=== PATIENT | female | born 1970 | race Caucasian/White ===

== ENCOUNTER 2021-01-16 09:54 | Observation (INO) | payer MEDICARE, MEDICAID ==
[~2021-01-16] VITALS: Ht 167.6 cm; Wt 121.6 kg
[2021-01-16 10:22] LABS: CALCIUM 9.6 mg/dL (8.5-10.1); CREATININE 0.8 mg/dL (0.6-1.0); GFR 76.6; POTASSIUM 4.2 mmol/L (3.5-5.1)
[2021-01-16 10:28] LABS: ALBUMIN 3.5 g/dL (3.4-5.0); ALBUMIN/GLOBULIN RATIO 0.9 (1.0-1.7); MAGNESIUM 2.2 mg/dL (1.8-2.4); TOTAL BILIRUBIN 0.2 mg/dL (0.2-1.0); TOTAL PROTEIN 7.4 g/dL (6.4-8.2)
[2021-01-16 10:31] LABS: BASO % 0 % (0-3); EOS # 0.1 x10^3/uL (0.0-0.7); EOS % 1 % (0-3); HEMATOCRIT 38.6 % (36.0-47.0); HEMOGLOBIN 12.6 g/dL (12.0-15.5); LYMPH # 2.4 x10^3/uL (1.0-4.8); LYMPH % 23 % (24-48); MEAN CORPUSCULAR HEMOGLOBIN 27 pg (25-35); MEAN CORPUSCULAR HGB CONC 33 g/dL (31-37); MEAN CORPUSCULAR VOLUME 83 fL (79-100); MONO % 10 % (0-9); NEUT # 6.8 x10^3/uL (1.8-7.7); NEUT % 66 % (31-73); PLATELET COUNT 272 x10^3/uL (140-400); RED BLOOD COUNT 4.67 x10^6/uL (3.50-5.40); RED CELL DISTRIBUTION WIDTH 15.4 % (11.5-14.5); WHITE BLOOD COUNT 10.3 x10^3/uL (4.0-11.0)
[2021-01-16 10:32] LABS: BILIRUBIN,URINE NEGATIVE (NEG); CLARITY,URINE CLEAR; COLOR,URINE YELLOW; NITRITE,URINE NEGATIVE (NEG); PROTEIN,URINE NEGATIVE (NEG-TRACE)
[2021-01-16 10:35] LABS: RBC,URINE 0 /HPF (0-2); WBC,URINE RARE /HPF (0-4)
[2021-01-16 10:36] LABS: BACTERIA,URINE 0 /HPF (0-FEW)
[2021-01-16] MEDS ORDERED: ONDANSETRON PF 4 MG/2 ML VIAL. IVP ONE (10:45)
[2021-01-16] MEDS ORDERED: levETIRAcetam 1,000 MG in IV DEXTROSE 5% 100ML 100 ML IV ONE (10:45)
[2021-01-16] MEDS ORDERED: HYOSCYAMINE 0.125 MG TAB.RAPDIS PO PRN (10:45)
[2021-01-16] MEDS ORDERED: IV NORMAL SALINE 1000ML BAG 1,000 ML IV ONE (10:45)
--- NOTE | 2021-01-16 10:58 | ED.ADGEN ---
Past Medical History Past Medical History: No Pertinent History Past Surgical History: Appendectomy, Cholecystectomy, Other Additional Past Surgical Histo: Gastric sleeve Smoking Status: Current Every Day Smoker Alcohol Use: Heavy General Adult EDM: Chief Complaint: ABDOMINAL PAIN HPI: HPI: Patient is a 50-year-old female with past medical history of polysubstance abuse who presents to the emergency room complaining of nausea, diarrhea, abdominal tightening, tremors that all started yesterday evening. Patient last had methamphetamines and alcohol on January 02 of this month. She last had benzod iazepines 3 days ago. Patient was on Ativan 4 times a day and was also taking Klonopin 3 times a day that she was not prescribed. She states it feels like she could have a seizure. She has had seizures previously with alcohol withdrawal. She has never been through benzodiazepine withdrawal before. She denies any kind of fever. She has not had any vomiting. She denies chest pain, shortness of breath, cough, congestion, URI symptoms. Review of Systems: Review of Systems: Complete ROS is negative unless otherwise documented in HPI Current Medications: Current Medications Medications (Trade) Dose Ordered Sig/Luigi Start Time Stop Time Status Last Admin Dose Admin Buspirone HCl (Buspar) 10 mg 1X ONCE 01/16/21 11:45 01/16/21 11:46 DC Hyoscyamine (Anaspaz) 0.25 mg 1X PRN 01/16/21 10:45 01/16/21 10:59 0.25 MG Levetiracetam 1000 mg/Dextrose 110 ml @ 440 mls/hr 1X ONCE 01/16/21 10:45 01/16/21 10:59 DC 01/16/21 10:59 440 MLS/HR Ondansetron HCl (Zofran) 4 mg 1X ONCE 01/16/21 10:45 01/16/21 10:49 DC 01/16/21 10:58 4 MG Sodium Chloride 1,000 ml @ 1,000 mls/hr 1X ONCE 01/16/21 10:45 01/16/21 11:44 DC 01/16/21 10:59 1,000 MLS/HR Allergies: Allergies: Allergies Coded Allergies Type Severity Reaction Last Updated Verified codeine Allergy Intermediate 01/16/21 Yes iodine Allergy Intermediate 01/16/21 Yes latex Allergy Intermediate 01/16/21 Yes levofloxacin Allergy Intermediate 01/16/21 Yes Physical Exam: PE: General: Awake, alert, NAD. Well Nourished, well hydrated. Cooperative HEENT: Atraumatic, EOMI, PERRL, airway patent, moist oral mucosa Neck: Supple, trachea midline Respiratory: CTA bilaterally, normal effort, no wheezing/crackles CV: RRR, no murmur, cap refill <2 GI: Soft, nondistended, nontender, no masses MSK: No obvious deformities Skin: Warm, dry, intact Neuro: A&O x3, speech NL, sensory and motor grossly intact, no focal deficits Psych: Normal affect, normal mood, not suicidal or homicidal Current Patient Data: Labs: Laboratory Tests Test 01/16/21 10:00 01/16/21 10:22 01/16/21 10:27 White Blood Count 10.3 x10^3/uL (4.0-11.0) Red Blood Count 4.67 x10^6/uL (3.50-5.40) Hemoglobin 12.6 g/dL (12.0-15.5) Hematocrit 38.6 % (36.0-47.0) Mean Corpuscular Volume 83 fL (79-100) Mean Corpuscular Hemoglobin 27 pg (25-35) Mean Corpuscular Hemoglobin Concent 33 g/dL (31-37) Red Cell Distribution Width 15.4 % (11.5-14.5) H Platelet Count 272 x10^3/uL (140-400) Neutrophils (%) (Auto) 66 % (31-73) Lymphocytes (%) (Auto) 23 % (24-48) L Monocytes (%) (Auto) 10 % (0-9) H Eosinophils (%) (Auto) 1 % (0-3) Basophils (%) (Auto) 0 % (0-3) Neutrophils # (Auto) 6.8 x10^3/uL (1.8-7.7) Lymphocytes # (Auto) 2.4 x10^3/uL (1.0-4.8) Monocytes # (Auto) 1.0 x10^3/uL (0.0-1.1) Eosinophils # (Auto) 0.1 x10^3/uL (0.0-0.7) Basophils # (Auto) 0.0 x10^3/uL (0.0-0.2) Sodium Level 146 mmol/L (136-145) H Potassium Level 4.2 mmol/L (3.5-5.1) Chloride Level 108 mmol/L (98-107) H Carbon Dioxide Level 29 mmol/L (21-32) Anion Gap 9 (6-14) Blood Urea Nitrogen 8 mg/dL (7-20) Creatinine 0.8 mg/dL (0.6-1.0) Estimated GFR (Cockcroft-Gault) 76.6 BUN/Creatinine Ratio 10 (6-20) Glucose Level 102 mg/dL (70-99) H Calcium Level 9.6 mg/dL (8.5-10.1) Magnesium Level 2.2 mg/dL (1.8-2.4) Total Bilirubin 0.2 mg/dL (0.2-1.0) Aspartate Amino Transferase (AST) 14 U/L (15-37) L Alanine Aminotransferase (ALT) 16 U/L (14-59) Alkaline Phosphatase 94 U/L (46-116) Total Protein 7.4 g/dL (6.4-8.2) Albumin 3.5 g/dL (3.4-5.0) Albumin/Globulin Ratio 0.9 (1.0-1.7) L Lipase 70 U/L (73-393) L Urine Collection Type Unknown Urine Color Yellow Urine Clarity Clear Urine pH 6.0 (<5.0-8.0) Urine Specific [place] 1.020 (1.000-1.030) Urine Protein Negative mg/dL (NEG-TRACE) Urine Glucose (UA) Negative mg/dL (NEG) Urine Ketones (Stick) Negative mg/dL (NEG) Urine Blood Negative (NEG) Urine Nitrite Negative (NEG) Urine Bilirubin Negative (NEG) Urine Urobilinogen Dipstick 1.0 mg/dL (0.2 mg/dL) Urine Leukocyte Esterase Negative (NEG) Urine RBC 0 /HPF (0-2) Urine WBC Rare /HPF (0-4) Urine Squamous Epithelial Cells Mod /LPF Urine Bacteria 0 /HPF (0-FEW) Urine Mucus Slight /LPF POC Urine HCG, Qualitative Hcg negative (Negative) Laboratory Tests 01/16/21 10:00 Laboratory Tests 01/16/21 10:00 Vital Signs: Vital Signs Date Time Temp Pulse Resp B/P (MAP) Pulse Ox O2 Delivery O2 Flow Rate FiO2 01/16/21 09:54 98.4 54 18 122/76 (91) 94 Room Air 98.4 EKG: EKG: [] Heart Score: C/O Chest Pain: N/A Risk Factors: Risk Factors: DM, Current or recent (<one month) smoker, HTN, HLP, family history of CAD, obesity. Risk Scores: Score 0 - 3: 2.5% MACE over next 6 weeks - Discharge Home Score 4 - 6: 20.3% MACE over next 6 weeks - Admit for Clinical Observation Score 7 - 10: 72.7% MACE over next 6 weeks - Early Invasive Strategies Radiology/Procedures: Radiology/Procedures: [] Course & Med Decision Making: Course & Med Decision Making Pertinent Labs and Imaging studies reviewed. (See chart for details) Patient presents to the emergency room complaining of nausea, diarrhea, abdominal tightening. Patient symptoms are most suggestive of benzodiazepine withdraw. Other differential was considered including appendicitis, diverticulitis, small bowel obstruction, cholecystitis, bowel perforation and these are considered to be less likely given patient's presentation and vital signs. Lab work was ordered to help her stratify patient for any emergent cause of abdominal pain. Patient will be treated symptomatically. She is trying to withdrawal from benzodiazepines . We will try other treatment including Zofran, Levsin, normal saline. Patient will be given Keppra to try to prevent any kind of withdrawal seizures. She has not had any kind of seizures here in the emergency room. Ana from the PAT team evaluated the patient as well. Patient will need help getting off of benzodiazepines due to significant withdrawal. With long discussions with Ana plan was made to start patient on a Librium taper. She will eventually need to go to [facility]. At this time [facility] is full. Patient will need to be observed overnight to ensure that she does not have any seizures as she does have a history of seizures with withdrawal. We will load her with Librium here in the emergency room. Librium taper was sent over to [facility] to pick up worker tomorrow. Luana Disclaimer: Luana Disclaimer: This electronic medical record was generated, in whole or in part, using a voice recognition dictation system. Departure Departure Impression: Primary Impression: Benzodiazepine withdrawal Disposition: ADMITTED INPATIENT Condition: STABLE Referrals: NO PCP (PCP) Patient Instructions: Benzodiazepine Withdrawal Scripts Chlordiazepoxide Hcl (CHLORDIAZEPOXIDE HCL) 25 Mg Capsule 25 MG PO UD for 35 Days, #147 CAP Take 50mg QID for 1 week Take 50mg TID for 1 week Take 25mg twice during the day and 50mg at night for 1 week Take 25mg BID for 1 week Take 25mg QHS for 1 week Prov: LYLA KOVACS MD 01/16/21 LYLA KOVACS MD Jan 16, 2021 10:58
[2021-01-16] MEDS ORDERED: busPIRone 10 MG TABLET. PO ONE (11:45)
[2021-01-16] MEDS ORDERED: chlordiazePOXIDE HCL 25 MG CAPSULE PO ONE (12:15)
[2021-01-16] MEDS ORDERED: CHLO25CA9 PO (12:21)
[2021-01-16] MEDS ORDERED: ONDANSETRON PF 4 MG/2 ML VIAL. IV PRN (12:30)
--- NOTE | 2021-01-16 12:42 | SSS ---
ADMIT DATE: 01/16/2021 CHIEF COMPLAINT: Benzodiazepine withdrawal, polysubstance abuse, and abdominal pain. HISTORY OF PRESENT ILLNESS: The patient is a pleasant 50-year-old female who was supposed to go to a substance abuse treatment center, but apparently is having too many symptoms of withdrawal. She apparently takes up to 20 Klonopin a day. She last used alcohol on 01/02. She also used methamphetamine at that time. She explains to me that her dad and her mom were both drug addicts and dealers, so she has been struggling with this all of her life. I discussed the case with ER physician. The plan is to go and get the patient in for benzodiazepine withdrawal. The patient is scheduled to go to a drug treatment center, perhaps as early as tomorrow if she is doing well. PAST MEDICAL HISTORY: Appendectomy, cholecystectomy, polysubstance abuse, gastric sleeve. She is a daily smoker. ALLERGIES: None. FAMILY HISTORY: Hypertension, alcohol abuse and substance abuse. SOCIAL HISTORY: She smokes and takes a lot of drugs including a lot of benzodiazepine. She uses methamphetamine, also uses alcohol. MEDICATIONS: Reviewed, please refer to the MRAD. REVIEW OF SYSTEMS: GENERAL: No history of weight change, weakness or fevers. SKIN: No bruising, hair changes or rashes. EYES: No blurred, double or loss of vision. NOSE AND THROAT: No history of nosebleeds, hoarseness or sore throat. HEART: No history of palpitations, chest pain or shortness of breath on exertion. LUNGS: Denies cough, hemoptysis, wheezing or shortness of breath. GASTROINTESTINAL: She complains of abdominal pain. GENITOURINARY: No history of frequency, urgency, hesitancy or nocturia. NEUROLOGIC: She complains of shaking. PSYCHIATRIC: No history of panic, anxiety or depression. ENDOCRINE: No history of heat or cold intolerance, polyuria or polydipsia. EXTREMITIES: Denies muscle weakness, joint pain, pain on walking or stiffness. PHYSICAL EXAMINATION: VITALS: Within normal limits and are stable. GENERAL: She is pleasant, a little shaky. HEENT: Normal cephalic atraumatic, external auditory canals are patent. She has poor dentition. EYES: Extraocular muscles are intact, pupils are equally round and reactive to light and accommodation. MUSCULOSKELETAL: Well developed, well nourished, good range of motion. ENDOCRINE: No thyromegaly was palpated. LYMPHATICS: No cervical chain or axillary nodes were noted. HEMATOPOIETIC: No bruising. NECK: Supple, no JVD, no thyromegaly was noted. LUNGS: Clear to auscultation in all lung dela cruz without rhonchi or wheezing. HEART: RRR, S1, S2 present. Peripheral pulses intact, no obvious murmurs were noted. ABDOMEN: Soft, nontender. Positive bowel sounds no organomegaly, normal bowel sounds. EXTREMITIES: Without any cyanosis, clubbing, or edema. Pedal pulses intact, Homans sign is negative. NEUROLOGIC: She is a little shaky. PSYCHIATRIC: Normal affect, normal mood. Stable. SKIN: No ulcerations or rashes, good skin turgor, no jaundice. VASCULAR: Good capillary refill, neurovascular bundle appears to be intact. ASSESSMENT AND PLAN: Benzodiazepine withdrawal. The patient has been amenable, give her benzodiazepine withdrawal protocol, IV fluids. I started procalamine at 75 mL an hour. Home meds. DVT prophylaxis. Full code. She is scheduled to go to a drug rehab tomorrow if she is stable. OMAR DR: Homa TID: [id number]
[2021-01-16 19:30] VITALS: BP 96/51
[2021-01-16] MEDS: AMINO AC 3%/ELECTROLYTE/GLYCER 1,000 ML IV SCH (19:57)
[2021-01-16] MEDS: chlordiazePOXIDE HCL 25 MG CAPSULE PO SCH (19:58)
[2021-01-16] MEDS ORDERED: TRAZ-123 PO (21:53)
[2021-01-16 22:53] VITALS: BP 93/44
[2021-01-17 03:29] VITALS: BP 98/57
[2021-01-17 07:00] VITALS: BP 111/66
[2021-01-17] MEDS: chlordiazePOXIDE HCL 25 MG CAPSULE PO SCH ×3 (07:19→12:16)
[2021-01-17] MEDS: AMINO AC 3%/ELECTROLYTE/GLYCER 1,000 ML IV SCH (07:20)
--- NOTE | 2021-01-17 10:51 | PDOC ---
[employer] PROGRESS NOTE Date of Service DOS: DATE: 01/17/21 TIME: 10:49 Chief Complaint Chief Complaint Benzodiazepine withdrawal. The patient has been amenable, give her benzodiazepine withdrawal protocol, IV fluids. I started procalamine at 75 mL an hour. Home meds. DVT prophylaxis. Full code. She is scheduled to go to a drug rehab tomorrow if she is stable. History of Present Illness History of Present Illness The patient is a pleasant 50-year-old female who was supposed to go to a substance abuse treatment center, but apparently is having too many symptoms of withdrawal. She apparently takes up to 20 Klonopin a day. She last used alcohol on 01/02. She also used methamphetamine at that time. She explains to me that her dad and her mom were both drug addicts and dealers, so she has been struggling with this all of her life. I discussed the case with ER physician. The plan is to go and get the patient in for benzodiazepine withdrawal. The patient is scheduled to go to a drug treatment center, perhaps as early as tomorrow if she is doing well. 01/17/2021: Patient seen and evaluated bedside. She feels Librium is helping with her withdrawals. Librium taper was written by ED attending and prescribed electronically to her pharmacy, and I discussed this with patient. Discussed with RN and social work lecturer, patient may discharge to [facility] today. Greater than 30 minutes was spent managing the discharge of this patient. Vitals/I&O Vitals/I&O: Vital Signs Date Time Temp Pulse Resp B/P (MAP) Pulse Ox O2 Delivery O2 Flow Rate FiO2 01/17/21 07:00 98.4 55 18 111/66 (81) 96 Room Air 98.4 I & O 01/16/21 01/16/21 01/17/21 14:59 22:59 06:59 Intake Total 120 ml 240 ml Balance 120 ml 240 ml Physical Exam General: Alert, No acute distress Heart: No murmurs Lungs: Clear Abdomen: Normal bowel sounds, Soft Extremities: No clubbing, No cyanosis Skin: No rashes, No breakdown Assessment and Plan Assessmemt and Plan Problems Medical Problems: (1) Benzodiazepine withdrawal Status: Acute Comment Review of Relevant I have reviewed the following items francisco (where applicable) has been applied. Medications: Current Medications Medications (Trade) Dose Ordered Sig/Luigi Route PRN Reason Start Time Stop Time Status Last Admin Dose Admin Buspirone HCl (Buspar) 10 mg 1X ONCE PO 01/16/21 11:45 01/16/21 11:46 DC 01/16/21 13:21 Chlordiazepoxide (Librium) 100 mg 1X ONCE PO 01/16/21 12:15 01/16/21 12:16 DC 01/16/21 12:21 Amino Acids/ Glycerin/ Electrolytes 1,000 ml @ 75 mls/hr [id number] IV 01/16/21 14:00 01/17/21 07:20 Chlordiazepoxide (Librium) 50 mg [id number] PO 01/16/21 18:00 01/17/21 12:01 01/17/21 07:19 Justifications for Admission Other Justification GREGORIO CARVER MD Jan 17, 2021 10:51
--- NOTE | 2021-01-17 10:54 | PDOC3 ---
Discharge Summary Visit Information Date of Admission: Jan 16, 2021 Date of Discharge: Jan 17, 2021 Final Diagnosis Problems Medical Problems: (1) Benzodiazepine withdrawal Status: Acute Brief Hospital Course Allergies Allergies Coded Allergies Type Severity Reaction Last Updated Verified codeine Allergy Intermediate 01/16/21 Yes iodine Allergy Intermediate 01/16/21 Yes latex Allergy Intermediate 01/16/21 Yes levofloxacin Allergy Intermediate 01/16/21 Yes Vital Signs Vital Signs Date Time Temp Pulse Resp B/P (MAP) Pulse Ox O2 Delivery O2 Flow Rate FiO2 01/17/21 07:00 98.4 55 18 111/66 (81) 96 Room Air 98.4 Lab Results Laboratory Tests Test 01/16/21 10:00 01/16/21 10:22 01/16/21 10:27 White Blood Count 10.3 x10^3/uL (4.0-11.0) Red Blood Count 4.67 x10^6/uL (3.50-5.40) Hemoglobin 12.6 g/dL (12.0-15.5) Hematocrit 38.6 % (36.0-47.0) Mean Corpuscular Volume 83 fL (79-100) Mean Corpuscular Hemoglobin 27 pg (25-35) Mean Corpuscular Hemoglobin Concent 33 g/dL (31-37) Red Cell Distribution Width 15.4 % (11.5-14.5) Platelet Count 272 x10^3/uL (140-400) Neutrophils (%) (Auto) 66 % (31-73) Lymphocytes (%) (Auto) 23 % (24-48) Monocytes (%) (Auto) 10 % (0-9) Eosinophils (%) (Auto) 1 % (0-3) Basophils (%) (Auto) 0 % (0-3) Neutrophils # (Auto) 6.8 x10^3/uL (1.8-7.7) Lymphocytes # (Auto) 2.4 x10^3/uL (1.0-4.8) Monocytes # (Auto) 1.0 x10^3/uL (0.0-1.1) Eosinophils # (Auto) 0.1 x10^3/uL (0.0-0.7) Basophils # (Auto) 0.0 x10^3/uL (0.0-0.2) Sodium Level 146 mmol/L (136-145) Potassium Level 4.2 mmol/L (3.5-5.1) Chloride Level 108 mmol/L (98-107) Carbon Dioxide Level 29 mmol/L (21-32) Anion Gap 9 (6-14) Blood Urea Nitrogen 8 mg/dL (7-20) Creatinine 0.8 mg/dL (0.6-1.0) Estimated GFR (Cockcroft-Gault) 76.6 BUN/Creatinine Ratio 10 (6-20) Glucose Level 102 mg/dL (70-99) Calcium Level 9.6 mg/dL (8.5-10.1) Magnesium Level 2.2 mg/dL (1.8-2.4) Total Bilirubin 0.2 mg/dL (0.2-1.0) Aspartate Amino Transf (AST/SGOT) 14 U/L (15-37) Alanine Aminotransferase (ALT/SGPT) 16 U/L (14-59) Alkaline Phosphatase 94 U/L (46-116) Total Protein 7.4 g/dL (6.4-8.2) Albumin 3.5 g/dL (3.4-5.0) Albumin/Globulin Ratio 0.9 (1.0-1.7) Lipase 70 U/L (73-393) Urine Collection Type Unknown Urine Color Yellow Urine Clarity Clear Urine pH 6.0 (<5.0-8.0) Urine Specific [place] 1.020 (1.000-1.030) Urine Protein Negative mg/dL (NEG-TRACE) Urine Glucose (UA) Negative mg/dL (NEG) Urine Ketones (Stick) Negative mg/dL (NEG) Urine Blood Negative (NEG) Urine Nitrite Negative (NEG) Urine Bilirubin Negative (NEG) Urine Urobilinogen Dipstick 1.0 mg/dL (0.2 mg/dL) Urine Leukocyte Esterase Negative (NEG) Urine RBC 0 /HPF (0-2) Urine WBC Rare /HPF (0-4) Urine Squamous Epithelial Cells Mod /LPF Urine Bacteria 0 /HPF (0-FEW) Urine Mucus Slight /LPF Bedside Urine HCG, Qualitative Hcg negative (Negative) Brief Hospital Course Ms. Arizmendi is a pleasant 50-year-old female who was supposed to go to a substance abuse treatment center, but apparently is having too many symptoms of withdrawal. She apparently takes up to 20 Klonopin a day. She last used alcohol on 01/02. She also used methamphetamine at that time. She explains to me that her dad and her mom were both drug addicts and dealers, so she has been struggling with this all of her life. I discussed the case with ER physician. The plan is to go and get the patient in for benzodiazepine withdrawal. The patient is scheduled to go to a drug treatment center, and will discharge today on short Librium taper. Discharge Information Condition at Discharge: Improved Disposition/Orders: D/C to Another Facility Scheduled Chlordiazepoxide Hcl (Chlordiazepoxide Hcl) 25 Mg Capsule, 25 MG PO UD for 35 Days, #147 Take 50mg QID for 1 week Take 50mg TID for 1 week Take 25mg twice during the day and 50mg at night for 1 week Take 25mg BID for 1 week Take 25mg QHS for 1 week Prescribed by: LYLA KOVACS MD on 01/16/21 1221 Trazodone Hcl (Trazodone Hcl) 100 Mg Tablet, 1 TAB PO QHS for insomnia, #30 Ref 1 (Reported) Entered as Reported by: VAMSHI GRANDA on 01/16/212152 Last Action: New Order on 01/16/212152 by VAMSHI GRANDA Justicifation of Admission Dx: Justifications for Admission: Justification of Admission Dx: Yes GREGORIO CARVER MD Jan 17, 2021 10:54
[2021-01-17 11:00] VITALS: BP 107/62
--- NOTE | 2021-01-17 12:20 | NUR ---
SW following. Discussed with RN, pt came from [facility], room air, regular diet. VIVIANA spoke with Kimberly ([facility]), she is coming to see pt to get pt to [facility] and then pt will get back to [facility]. VIVIANA will continue to follow.
[2021-01-17 15:00] VITALS: BP 99/59
--- NOTE | 2021-01-17 17:11 | NUR ---
Discharge Note: [facility] Discharge instructions and discharge home medications reviewed with the patient and a copy given. All questions have been answered and understanding verbalized. The following instructions and handouts were given: Home meds as directed. Librium prescription given by ER doc. Benzodiazepine withdrawal handout Continue rehab with [facility] Follow up with PCP in weeks Discontinued lines and drains: peripheral IV intact, patient tolerated removal, no complications noted Patient discharged to [facility] on room air via cab at 1650.
== END 2021-01-17 16:50 ==
LOC: ER 09:54 → ED HOLD 12:24 → 6 SOUTH 19:00
PROVIDERS: ADMIT Internal Medicine; ATTEND Internal Medicine
DX: F13.239 Sedative, hypnotic or anxiolytic dependence with withdrawal, unspecified (principal); G47.00 Insomnia, unspecified; F17.210 Nicotine dependence, cigarettes, uncomplicated; Z90.49 Acquired absence of other specified parts of digestive tract
CPT/HCPCS: 36415; 80053; 81001; 81025; 83690; 83735; 85025; 96365; 96366; 96375; 99284; 99406; G0378; J1953; J2405; J3490; J7030; J7060; 96367; G0379